=== PATIENT | male | born 1955 | race Caucasian/White ===

== ENCOUNTER 2020-09-17 13:45 | Outpatient (REF) | payer BC, SELFPAY ==
[2020-09-17 15:17] LABS: Prostate Specific Antigen < 0.05 ng/mL (<0.05-4.0)
[2020-09-17 15:21] LABS: Erythrocyte Sedimentation Rate 1 MM/HR (0-15)
[2020-09-17 15:23] LABS: Folate 15.5 ng/mL (> or = 4.0); Vitamin B12 743 pg/mL (200-900)
[2020-09-18 03:55] LABS: Syphilis Screen Nonreactive (Nonreactive)
[2020-09-19 17:31] LABS: Lyme Abs Screen <0.90 index
[2020-09-22 09:42] LABS: IgA 84 mg/dL (70-320); IgG 993 mg/dL (600-1540); IgM 67 mg/dL (50-300)
== END 2020-09-17 13:46 | disposition home or self-care (01) ==
LOC: HO.LAB 13:45
PROVIDERS: PCP Internal Medicine; Visit Provider Psychiatry & Neurology Neurology
DX: Z01.84 Encounter for antibody response examination (principal); Z12.5 Encounter for screening for malignant neoplasm of prostate; Z11.3 Encounter for screening for infections with a predominantly sexual mode of transmission; G62.9 Polyneuropathy, unspecified
CPT/HCPCS: 36415; 82607; 82746; 82784; 84153; 85652; 86334; 86617; 86618; 86780

== ENCOUNTER 2020-10-14 12:40 | Outpatient (REF) | payer BC, SELFPAY ==
[2020-10-14 13:52] LABS: Blood Urea Nitrogen 15 mg/dL (9-16); Estimated Glomerular Filt Rate > 60
[2020-10-14 14:09] LABS: Syphilis Screen Nonreactive (Nonreactive)
[2020-10-14 14:15] LABS: Vitamin B12 599 pg/mL (200-900)
[2020-10-15 09:25] LABS: Lyme Abs Screen <0.90 index
== END 2020-10-14 12:41 | disposition home or self-care (01) ==
LOC: HO.LAB 12:40
PROVIDERS: PCP Internal Medicine; Visit Provider Psychiatry & Neurology Neurology
DX: G93.40 Encephalopathy, unspecified (principal)
CPT/HCPCS: 36415; 82565; 82607; 84520; 86617; 86618; 86780

== ENCOUNTER 2020-11-03 14:50 | Outpatient (REF) | payer BC, SELFPAY ==
--- NOTE | ~2020-11-03 | MR_ITS ---
EXAMINATION: MRI OF THE BRAIN WITH AND WITHOUT IV CONTRAST INDICATION: Encephalopathy. COMPARISON: None available. TECHNIQUE: Multiplanar multisequence MR imaging of the brain was obtained without and following the administration of 9 mL of Gadavist without complication. FINDINGS: There is no pathologic intracranial enhancement. There is global cerebral volume loss and there is mild chronic microangiopathy. There is no hydrocephalus, extra-axial surface collection, or herniation. The major flow voids at the skull base are preserved. There is no acute infarct on diffusion-weighted imaging. There is no intracranial hemorrhage on the gradient recalled echo acquisition. The midline structures are normal. The cerebellar tonsils are normally positioned. The cerebellum and brainstem are normal. The craniocervical junction is normal. Osseous marrow signal intensity is homogenous. The visualized soft tissues are unremarkable. There is a retention cyst within the right maxillary sinus. The remaining paranasal sinuses and the mastoid air cells are clear. MR/MR head/brain wo/w con IMPRESSION: No acute intracranial findings. No pathologic enhancement. There is global cerebral volume loss and there is mild chronic microangiopathy.
== END 2020-11-03 14:51 | disposition home or self-care (01) ==
LOC: HO.MRI 14:50
PROVIDERS: PCP Internal Medicine; Visit Provider Psychiatry & Neurology Neurology
DX: G93.40 Encephalopathy, unspecified (principal)
CPT/HCPCS: 70553; A9585

== ENCOUNTER 2024-04-01 12:57 | Outpatient (AMB) | payer OTHER, SELFPAY ==
--- NOTE | 2024-04-01 13:14 | MHC.PC.OV ---
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 Intake Note: New patient visit Road Advisor Required: No Accompanied by: Spouse Allergies No Known Allergies Allergy (Verified 04/01/24 13:17) Tobacco use date assessed: 04/01/24 Fall risk assessment: No Falls in past year Last assessed Fall Risk: 04/01/24 Dental Screening Dental Screen Date: 04/01/24 Did you have a dental visit in the last 12 months?: Yes Did you have a dental problem in the last 6 months where you did not have access to dental care?: No Was dental information given to patient?: Patient has dentist HPI HPI Comments History of Present Illness Details 68 year old female with a past medical history of memory loss presenting to [facility]. Memory loss: On donepezil, memantine. Follows with Dr Kaet at [facility]. Diagnosed with alzheimer dementia. ROS CONSTITUTIONAL: Denies weight loss, fever and chills. HEENT: Denies changes in vision and hearing. RESPIRATORY: Denies SOB and cough. CV: Denies palpitations and CP GI: Denies abdominal pain, nausea, vomiting and diarrhea. : Denies dysuria and urinary frequency. MSK: Denies new myalgia and joint pain. SKIN: Denies rash and pruritus. NEUROLOGICAL: Denies headache PSYCHIATRIC: Denies recent changes in mood. PHYSICAL EXAM: GENERAL: Alert and oriented x 3. NAD EYES: EOMI. Anicteric. HENT: Moist mucous membranes. No scleral icterus. No cervical lymphadenopathy. LUNGS: Clear to auscultation bilaterally. CARDIOVASCULAR: Regular rate and rhythm. No murmur. No JVD. ABDOMEN: Soft, non-tender +bs EXTREMITIES: No edema. Non-tender. SKIN: No rashes or lesions. Warm. NEUROLOGIC: No focal neurological deficits. CN II-XII grossly intact PSYCHIATRIC: Cooperative. Appropriate mood and affect [facility] Surgical History History of appendectomy Hx of prostatectomy Family History Other Substance abuse Social History Housing: House Alcohol intake: current Patient Tobacco Use Status: Never used Tobacco e-Cigarette/Vaping Use: Never Used Second Hand Smoke Exposure: No service: No Current occupational status: retired Cognitive needs: Yes (has Alzheimer's ) Hearing needs: No Vision needs: Yes (reading glasses) Questionnaire PHQ-9 Over the last 2 weeks, how often have you been bothered by any of the following problems? 1. Little interest or pleasure in doing things: several days 2. Feeling down, depressed, or hopeless: several days 3. Trouble falling or staying asleep, or sleeping too much: not at all 4. Feeling tired or having little energy: not at all 5. Poor appetite or overeating: not at all 6. Feeling bad about yourself - or that you are a failure or have let yourself or your family down: not at all 7. Trouble concentrating on things, such as reading the newspaper or watching television: not at all 8. Moving or speaking so slowly that other people could have noticed. Or the opposite - being so fidgety or restless that you have been moving around a lot more than usual: not at all 9. Thoughts that you would be better off or of hurting yourself in some way: not at all Total score: 2 Depression Screening Interpretation: Negative Depression Screening Done: Yes 84486 - PHQ-9 Billing: Yes Source: Developed by Drs. Matthew Carter, Gaby Hirsch, Mars Schafer and colleagues, with an educational cheng from [employer] Thrive Questionnaire Date Thrive assessed: 03/29/24 I am a: Parent/Caregiver What is your living situation today?: I have a steady place to live Within the past 12 months, did the food you bought not last and you didn't have the money to get more?: Never true Within the past 12 months, did you worry whether your food would run out before you got money to buy more?: Never true Do you have trouble paying for medicines?: No Do you have trouble getting transportation to medical appointments?: No Do you have trouble paying your heating and electricity bill?: No Do you have trouble taking care of your child, family member or friend?: No Do you have trouble with day-to-day activities such as bathing, preparing meals, shopping, managing finances, etc.?: Yes Are you currently unemployed and looking for a job?: No Are you interested in more education?: No Please select the resources that you would like help with: None Currently or been in a relationship where the following occur: No concerns reported THRIVE Score: 0 AUDIT C Alcohol Use Questionnaire (AUDIT-C) 1. How often do you have a drink containing alcohol?: 2-4 times a month 2. How many drinks containing alcohol do you have on a typical day when you are drinking?: 1 or 2 3. How often do you have six or more drinks on one occasion?: Never Total Score: 2 LUIGI-7 AMB Questionnaire LUIGI-7 Feeling nervous, anxious, or on edge: 0 = Not at all Not being able to stop or control worryin = Not at all Worrying too much about different things: 0 = Not at all Trouble relaxin = Not at all Being so restless that it is hard to sit still: 0 = Not at all Becoming easily annoyed or irritable: 0 = Not at all Feeling afraid as if something awful might happen: 0 = Not at all Total LUIGI-7 score (0-4 normal; 5-9 mild; 10-14 moderate; 15-21 severe): 0 Source: Developed by Drs. Matthew Carter, Gaby Hirsch, Mars Schafer and colleagues, with an educational cheng from [employer] Physical exam (Primary Care) Vital Signs: Last Vital Signs Pulse 62 04/01/24 13:23 Resp 14 04/01/24 13:23 BP 118/78 04/01/24 13:23 Pulse Ox 97 04/01/24 13:23 Oxygen Delivery Method Room Air 04/01/24 13:23 BMI result Body Mass Index 28.3 Tobacco/Smoking Status: Tobacco use Status Tobacco use date assessed 04/01/24 04/01/24 13:26 Patient Tobacco Use Status Never used Tobacco 04/01/24 13:26 e-Cigarette/Vaping Use Never Used 04/01/24 13:26 PHQ-9: PHQ-9 Score PHQ-9: Total score 2 04/01/24 13:16 Depression Screening Interpretation: Negative Thrive Assessment: Date of Thrive Assessment Date Thrive assessed 03/29/24 04/01/24 13:16 Currently or been in a relationship where the following occur: No concerns reported Coding Level of Care Code Est Pt Level 4 (89848) Diagnoses Encounter to establish care Z76.89 Alzheimer's dementia, unspecified dementia severity, unspecified timing of dementia onset, unspecified whether behavioral, psychotic, or mood disturbance or anxiety G30.9; F02.80 Alzheimer's disease onset: unspecified onset Dementia severity: unspecified severity Dementia behavioral or psychological symptom: unspecified whether behavioral, psychotic, or mood disturbance or anxiety Additional Codes PHQ-9 - 50357 - PHQ-9 Billing: Yes ([id number]) Assessment & Plan Assessment & Plan (1) Encounter to establish care: Code(s): Z76.89 - Persons encountering health services in other specified circumstances Category: Medical Plan: 68 year old to establish care. Past medical, surgical, social and family history reviewed. (2) Alzheimer dementia: Code(s): G30.9 - Alzheimer's disease, unspecified; F02.80 - Dementia in other diseases classified elsewhere, unspecified severity, without behavioral disturbance, psychotic disturbance, mood disturbance, and anxiety Category: Medical Qualifiers: Alzheimer's disease onset: unspecified onset Dementia severity: unspecified severity Dementia behavioral or psychological symptom: unspecified whether behavioral, psychotic, or mood disturbance or anxiety Qualified Code(s): G30.9 - Alzheimer's disease, unspecified; F02.80 - Dementia in other diseases classified elsewhere, unspecified severity, without behavioral disturbance, psychotic disturbance, mood disturbance, and anxiety Plan: continue neurology follow up. Continue current medications. Orders: Orders TSH reflex Free T4 Today F02.80 - Dementia in other diseases classified elsewhere, unspecified severity, without behavioral disturbance, psychotic disturbance, mood disturbance, and anxiety, G30.9 - Alzheimer's disease, unspecified, Z13.0 - Encounter for screening for diseases of the blood and blood-forming organs and certain disorders involving the immune mechanism, Z13.220 - Encounter for screening for lipoid disorders, Z13.228 - Encounter for screening for other metabolic disorders Complete Blood Count Auto Diff Today F02.80 - Dementia in other diseases classified elsewhere, unspecified severity, without behavioral disturbance, psychotic disturbance, mood disturbance, and anxiety, G30.9 - Alzheimer's disease, unspecified, Z13.0 - Encounter for screening for diseases of the blood and blood-forming organs and certain disorders involving the immune mechanism, Z13.220 - Encounter for screening for lipoid disorders, Z13.228 - Encounter for screening for other metabolic disorders Comprehensive Met. Panel Today F02.80 - Dementia in other diseases classified elsewhere, unspecified severity, without behavioral disturbance, psychotic disturbance, mood disturbance, and anxiety, G30.9 - Alzheimer's disease, unspecified, Z13.0 - Encounter for screening for diseases of the blood and blood-forming organs and certain disorders involving the immune mechanism, Z13.220 - Encounter for screening for lipoid disorders, Z13.228 - Encounter for screening for other metabolic disorders Lipid Panel Today F02.80 - Dementia in other diseases classified elsewhere, unspecified severity, without behavioral disturbance, psychotic disturbance, mood disturbance, and anxiety, G30.9 - Alzheimer's disease, unspecified, Z13.0 - Encounter for screening for diseases of the blood and blood-forming organs and certain disorders involving the immune mechanism, Z13.220 - Encounter for screening for lipoid disorders, Z13.228 - Encounter for screening for other metabolic disorders Vitamin B12 and Folate Today F02.80 - Dementia in other diseases classified elsewhere, unspecified severity, without behavioral disturbance, psychotic disturbance, mood disturbance, and anxiety, G30.9 - Alzheimer's disease, unspecified, Z13.0 - Encounter for screening for diseases of the blood and blood-forming organs and certain disorders involving the immune mechanism, Z13.220 - Encounter for screening for lipoid disorders, Z13.228 - Encounter for screening for other metabolic disorders
[2024-04-01 13:23] VITALS: BP 118/78; PULSE 62; RESP 14; O2SAT 97; BMI 28.3
== END 2024-04-01 13:52 | disposition home or self-care (01) ==
PROVIDERS: PCP Internal Medicine; Visit Provider Internal Medicine
DX: Z76.89 Persons encountering health services in other specified circumstances (principal); G30.9 Alzheimer's disease, unspecified; F02.80 Dementia in other diseases classified elsewhere, unspecified severity, without behavioral disturbance, psychotic disturbance, mood disturbance, and anxiety

== ENCOUNTER → 2024-04-01 12:57 | Outpatient (BNVA) | payer OTHER, SELFPAY | PROVIDERS: PCP Internal Medicine; Visit Provider Internal Medicine | DX: G30.9 Alzheimer's disease, unspecified (principal); F02.80 Dementia in other diseases classified elsewhere, unspecified severity, without behavioral disturbance, psychotic disturbance, mood disturbance, and anxiety; Z76.89 Persons encountering health services in other specified circumstances; Z13.0 Encounter for screening for diseases of the blood and blood-forming organs and certain disorders involving the immune mechanism; Z13.220 Encounter for screening for lipoid disorders; Z13.228 Encounter for screening for other metabolic disorders | CPT/HCPCS: 96127 ==

== ENCOUNTER 2024-04-01 13:58 | Outpatient (REF) | payer OTHER, SELFPAY ==
--- OUTSIDE RECORDS SUMMARY | 2024-04-01 15:08 | XMS_ITS | Clinical Summary ---
Author Organization [facility] Address [address] [place] [address] Care Team Providers Care Featherer Name Role Phone Unavailable Primary Care Provider Unavailabl e Social History Tobacco Use Types Packs/Day Years Used Date Smoking Tobacco: Never Assessed Sex and Gender Information Value Date Recorded Sex Assigned at Not on file Gender Identity Not on file Sexual Orientation Not on file Plan of Treatment Health Maintenance Due Date Last Done Comments Hepatitis C Virus Screening 1955 DTaP/Tdap/Td Vaccines (1 - Tdap) 1973 Pneumococcal Vaccines 50+ (1 of 1 - PCV) 2004 Zoster (Shingles) Vaccine (1 of 2) 2004 COVID-19 Vaccine (2023-2 5 season) 2023 RSV Vaccine 60 years and old er and Patients (1 - 1-dose 75+ series) 2029 Hepatitis B Vaccines Aged Out No long er eligible based on patient's age to complete this topic
--- OUTSIDE RECORDS SUMMARY | 2024-04-01 15:08 | XMS_ITS | Clinical Summary ---
Author Organization [facility] Address [address] [place] [address] Phone Care Team Providers Care Pain Management Nurse Name Role Phone Raine Nguyen MD Primary Care Provider [phone] Allergies No known active allergies Medications memantine (NAMENDA) 10 mg tablet Take 1 tablet (10 mg total) by mouth 2 (two) times a day. 4 Active testosterone 20.25 mg/1.25 gram (1.62 %) gel in metered-dose pump Place 2 pump actuation onto the skin daily. 8 Active donepeziL (ARICEPT) 5 mg tabletIndicatio ns:Alzheimer disease ([facility]) Take 1 tablet (5 mg total) by mouth at bedtime. 90 tablet 2 5 02/21/19 26 Active Active Problems Problem Noted Date Diagnosed Date Alzheimer disease 12/30/2022 Encounters Date Type Department Care Team Description 02/22/2024 10:40 AM EST Office Visit Neurostroke - [place] [address] [place] [address] Abram Lucas MD Alzheimer disease ([facility]) (Primary Dx) from Last 3 Months Social History Tobacco Use Types Packs/Day Years Used Date Smoking Tobacco: Never Assessed Sex and Gender Information Value Date Recorded Sex Assigned at Not on file Legal Sex Male 11:05 PM EST Gender Identity Not on file Sexual Orientation Not on file Obstetrics History Last Filed Vital Signs Vital Sign Reading Time Taken Comments Blood Pressure 135/88 02/22/2024 10:41 AM EST Pulse 66 02/22/2024 10:41 AM EST Temperature - - Respiratory Rate - - Oxygen Saturation 98% 02/22/2024 10:41 AM EST Inhaled Oxygen Concentration - - Weight 82.1 kg (181 lb) 04/20/2023 1:52 PM EST Height 177.8 cm (5' 10 ) 04/20/2023 1:52 PM EST Body Mass Index 25.97 04/20/2023 1:52 PM EST Plan of Treatment Upcoming Encounters Date Type Department Care Team (Late st Contact Info) Description 04/16/2024 1:00 PM EST Office Visit Neurology - [place] [place] [id number] Abram Luacs MD [address] [place], [place] [id number] Health Maintenance Due Date Last Done Comments Abdominal Aortic Aneurysm (AAA) Screen 01/29/2022 Depression Screening 01/29/2022 Falls Risk Assessment 01/29/2022 Medicare Annual Wellness Visit 01/29/2022 Social Influencers of Health Screening 01/29/2022 Hypertension/CHF/CAD Annual BMP Blood Test 02/01/2022 Zoster Vaccines (2 of 2) 02/18/2023 12/24/2022, 11/21 COVID-19 Vaccine ( season) 2023 11/27/2020, 05/16/2020, 04/25/2020 Influenza Vaccine (#1) 2023 , 11/24/2019, 11/29/2018, Additional history exists Colorectal Cancer Screening: Colonoscopy 02/07/2026 02/08/2016, 02/08/2016 Cholesterol Screening (Lipid Panel) 03/01/2028 03/01/2023 RSV Immunization Patients 60+ Years Old (1 - 1-dose 75+ series) 2029 DTaP,Tdap,and Td Vaccines (4 - Td or Tdap) 11/03/2031 11/02/2021, 04/13/2011, 03/06/2003 Hepatitis C Screening Addressed 12/23/2016 Overri dden with the intention of not completing the topic Pneumococcal Vaccine: 50+ Years Completed 01/30/2023, 11/02/2021 HIB Vaccines Aged Out No longer eligi ble based on patient's age to complete this topic HPV Vaccines Aged Out No longer eligi ble based on patient's age to complete this topic Hepatitis A Vaccines Aged Out No long er eligible based on patient's age to complete this topic Hepatitis B Vaccines Aged Out No long er eligible based on patient's age to complete this topic IPV Vaccines Aged Out No longer eligi ble based on patient's age to complete this topic MMR Vaccines Aged Out No longer eligi ble based on patient's age to complete this topic Meningococcal ACWY Vaccine Aged Out N o longer eligible based on patient's age to complete this topic Meningococcal B Vacine Aged Out No lo nger eligible based on patient's age to complete this topic RSV Immunization Patients Under 20 months Aged Out No longer eligible based on patient's age to complete this topic Varicella Vaccines Aged Out No longer eligible based on patient's age to complete this topic Insurance [employer] MEDICARE Care Teams Pain Management Nurse Relationship Specialty Start Date End Date Raine Nguyen MD PCP - General Internal Medicine 02/22/24
--- OUTSIDE RECORDS SUMMARY | 2024-04-01 15:08 | XMS_ITS | Clinical Summary ---
Author Organization [facility] Address [address] [place] [address] Care Team Providers Care Classer Name Role Phone Unavailable Primary Care Provider Unavailabl e Allergies No known active allergies Medications Medication Sig Dispensed Refills Start Date End Date Status testosterone (ANDROGEL) gel pump 1.62% (20.25 mg testosterone/1.25 g gel) Place 2 pump actuation onto the skin daily. 60 pump actuation 5 06/19/2017 Active Additional Information Patient not taking.Reason: Other, Reported on 05/16/2023 memantine (NAMENDA) 10 MG tabletIndications :Alzheimer disease (HCC) TAKE 1 TABLET BY MOUTH TWICE A DAY 180 tablet 2 11/29/2023 Active Active Problems Problem Noted Date Diagnosed Date Alzheimer disease 05/16/2023 Social History Tobacco Use Types Packs/Day Years Used Date Smoking Tobacco: Never Assessed Sex and Gender Information Value Date Recorded Sex Assigned at Not on file Gender Identity Not on file Sexual Orientation Not on file Job Start Date Occupation Industry Not on file Not on file Not on file Last Filed Vital Signs Vital Sign Reading Time Taken Comments Blood Pressure 145/88 11/20/2023 10:28 AM EDT Pulse 86 11/20/2023 10:28 AM EDT Temperature - - Respiratory Rate - - Oxygen Saturation 98% 11/20/2023 10:28 AM EDT Inhaled Oxygen Concentration - - Weight - - Height - - Body Mass Index - - Plan of Treatment Health Maintenance Due Date Last Done Comments Hepatitis C Screening 1955 Depression Screening 1966 Preventative Health Evaluation 1972 Colon Cancer Screening (Colonoscopy) 1999 Fall Risk Assessment 2019 Shingrix-Zoster Vaccine (2 of 2) 02/18/2023 12/24/2022 COVID-19 Vaccine ( season) 2023 11/27/2020, 05/16/2020, 04/25/2020 Influenza Vaccine (#1) 2023 , 11/24/2019, 11/29/2018, Additional history exists RSV Adult > 60+ Yrs or (1 - 1-dose 75+ series) 2029 DTap / Tdap / Td (3 - Td or Tdap) 11/03/2031 11/02/2021, 04/13/2011 Pneumococcal Vaccine Completed 01/30/2023, 11/03/19 Hepatitis B Vaccines Aged Out No long er eligible based on patient's age to complete this topic RSV Ped < 20 months Aged Out No longe r eligible based on patient's age to complete this topic
[2024-04-01 17:53] LABS: MANUAL DIFF FLAG NO
[2024-04-01 18:04] LABS: Basophils Absolute Auto 0.1 X10*3/uL (0.0-0.2); Basophils Percent Auto 0.7 % (0-2); Eosinophils Percent Auto 0.3 % (0-4); Hematocrit 47.5 % (42.0-52.0); Hemoglobin 16.1 g/dl (14.0-18.0); Imm Gran Abs Auto 0.03 X10*3/uL (0.00-0.03); Imm Gran Pct Auto 0.3 % (0.0-0.4); Lymphocytes Absolute Auto 2.3 X10*3/uL (1.2-4.9); Lymphocytes Percent Auto 26.2 % (20-40); Mean Corpuscular HGB Conc 33.9 g/dl (31.0-36.0); Mean Corpuscular Hemoglobin 29.9 pg (27.0-33.0); Mean Corpuscular Volume 88.1 fL (80.0-98.0); Mean Platelet Volume 10.4 fL (9.4-12.4); Monocytes Absolute Auto 0.6 X10*3/uL (0.1-1.2); Monocytes Percent Auto 6.9 % (2-11); Neutrophils Absolute Auto 5.7 x10*3/uL (2.0-8.3); Neutrophils Percent Auto 65.6 % (45-73); Platelet Count 244 X10*3/uL (160-400); Red Blood Count 5.39 X10*6/uL (4.60-5.80); White Blood Count 8.6 X10*3/uL (4.8-10.8)
[2024-04-01 18:23] LABS: Alanine Aminotransferase 26 U/L (0-40); Albumin Level 4.5 g/dL (3.5-5.0); Alkaline Phosphatase 63 U/L (39-117); Anion Gap 10 (12-20); Aspartate Amino Transferase 24 U/L (5-37); Bilirubin Total 0.8 mg/dL (0.0-1.0); Blood Urea Nitrogen 16 mg/dL (9-16); Calcium 9.5 mg/dL (8.4-10.2); Carbon Dioxide 27 mmol/L (22-29); Chloride 107 mmol/L (96-108); Cholesterol 188 mg/dL (<200); Estimated Glomerular Filt Rate > 60; Glucose Random 85 mg/dL (60-115); HDL Cholesterol 43 mg/dL (>40); LDL Cholesterol Calculated 116 mg/dL (<100); Potassium 4.3 mmol/L (3.3-5.1); Sodium 140 mmol/L (135-145); Total Protein 7.6 g/dL (6.5-8.0); Triglycerides 149 mg/dL (<150)
[2024-04-01 18:39] LABS: TSH reflex Free T4 1.75 uIU/mL (0.32-4.0)
[2024-04-01 18:52] LABS: Folate 13.2 ng/mL (> or = 4.0); Vitamin B12 648 pg/mL (200-900)
== END 2024-04-01 13:59 | disposition home or self-care (01) ==
LOC: HO.WFDLDS 13:58
PROVIDERS: Visit Provider Internal Medicine
DX: Z13.0 Encounter for screening for diseases of the blood and blood-forming organs and certain disorders involving the immune mechanism (principal); Z13.220 Encounter for screening for lipoid disorders; Z13.228 Encounter for screening for other metabolic disorders; G30.9 Alzheimer's disease, unspecified; F02.80 Dementia in other diseases classified elsewhere, unspecified severity, without behavioral disturbance, psychotic disturbance, mood disturbance, and anxiety
CPT/HCPCS: 36415; 80053; 80061; 82607; 82746; 84443; 85025

== ENCOUNTER 2024-12-24 15:07 | Outpatient (AMB) | payer OTHER, SELFPAY ==
--- NOTE | 2024-12-24 15:10 | MHC.PC.OV ---
Vital Signs 12/24/24 15:14 Height 5 ft 10 in Weight 200 lb 8 oz BMI 28.8 BP 162/78 H Blood Pressure Location Rt brachial Position Sitting Respiration 14 Pulse 82 Pulse Source Pulse Oximeter Temp 97.3 F Temp Source Oral Pulse Oximetry (%) 99 Oxygen Delivery Method Room Air Intake Visit Reasons: PE - see comments Intake Note: CPE. Patient want to discuss about his mood has been off. Manager Of Learning Required: No Allergies No Known Allergies Allergy (Verified 12/24/24 15:10) Tobacco use date assessed: 12/24/24 Fall risk assessment: No Falls in past year Last assessed Fall Risk: 12/24/24 Dental Screening Dental Screen Date: 12/24/24 Did you have a dental visit in the last 12 months?: Yes Did you have a dental problem in the last 6 months where you did not have access to dental care?: No Was dental information given to patient?: Patient has dentist HPI HPI Comments History of Present Illness Details 68 year old female with a past medical history of memory loss presenting for CPE Memory loss: On donepezil, memantine. Follows with Dr Kate at [facility]. Diagnosed with alzheimer dementia. Seen in August. PCV 2022 Tdap 2021 Shingrix 2022 ++ Flu & COVID -received ROS CONSTITUTIONAL: Denies weight loss, fever and chills. HEENT: Denies changes in vision and hearing. RESPIRATORY: Denies SOB and cough. CV: Denies palpitations and CP GI: Denies abdominal pain, nausea, vomiting and diarrhea. : Denies dysuria and urinary frequency. MSK: Denies new myalgia and joint pain. SKIN: Denies rash and pruritus. NEUROLOGICAL: Denies headache PSYCHIATRIC: Denies recent changes in mood. PHYSICAL EXAM: GENERAL: Alert and oriented x 3. NAD EYES: EOMI. Anicteric. HENT: Moist mucous membranes. No scleral icterus. No cervical lymphadenopathy. LUNGS: Clear to auscultation bilaterally. CARDIOVASCULAR: Regular rate and rhythm. No murmur. No JVD. ABDOMEN: Soft, non-tender +bs EXTREMITIES: No edema. Non-tender. SKIN: No rashes or lesions. Warm. NEUROLOGIC: No focal neurological deficits. CN II-XII grossly intact PSYCHIATRIC: Cooperative. Appropriate mood and affect [facility] Surgical History (Updated 12/24/24 @ 16:05 by Raine Nguyen MD) History of appendectomy Hx of prostatectomy Family History Other Substance abuse Social History Housing: House Alcohol intake: current Patient Tobacco Use Status: Never used Tobacco e-Cigarette/Vaping Use: Never Used Second Hand Smoke Exposure: No service: No Current occupational status: retired Cognitive needs: Yes (has Alzheimer's ) Hearing needs: No Vision needs: Yes (reading glasses) Questionnaire PHQ-9 Over the last 2 weeks, how often have you been bothered by any of the following problems? 1. Little interest or pleasure in doing things: not at all 2. Feeling down, depressed, or hopeless: not at all 3. Trouble falling or staying asleep, or sleeping too much: not at all 4. Feeling tired or having little energy: not at all 5. Poor appetite or overeating: not at all 6. Feeling bad about yourself - or that you are a failure or have let yourself or your family down: not at all 7. Trouble concentrating on things, such as reading the newspaper or watching television: not at all 8. Moving or speaking so slowly that other people could have noticed. Or the opposite - being so fidgety or restless that you have been moving around a lot more than usual: not at all 9. Thoughts that you would be better off or of hurting yourself in some way: not at all Total score: 0 Depression Screening Interpretation: Negative Depression Screening Done: Yes 79487 - PHQ-9 Billing: Yes Source: Developed by Drs. Matthew Carter, Gaby Hirsch, Mars Schafer and colleagues, with an educational cheng from [employer]. Thrive Questionnaire Date Thrive assessed: 12/24/24 I am a: Parent/Caregiver What is your living situation today?: I have a steady place to live Within the past 12 months, did the food you bought not last and you didn't have the money to get more?: Never true Within the past 12 months, did you worry whether your food would run out before you got money to buy more?: Never true Do you have trouble paying for medicines?: No Do you have trouble getting transportation to medical appointments?: No Do you have trouble paying your heating and electricity bill?: No Do you have trouble taking care of your child, family member or friend?: No Do you have trouble with day-to-day activities such as bathing, preparing meals, shopping, managing finances, etc.?: Yes Are you currently unemployed and looking for a job?: No Are you interested in more education?: No Please select the resources that you would like help with: None Currently or been in a relationship where the following occur: No concerns reported THRIVE Score: 0 AUDIT C Alcohol Use Questionnaire (AUDIT-C) 1. How often do you have a drink containing alcohol?: 2-4 times a month 2. How many drinks containing alcohol do you have on a typical day when you are drinking?: 1 or 2 3. How often do you have six or more drinks on one occasion?: Never Total Score: 2 Score Reviewed/Action Taken: Yes LUIGI-7 AMB Questionnaire LUIGI-7 Date LUIGI - 7 assessed: 12/24/24 Feeling nervous, anxious, or on edge: 1 = Several days Not being able to stop or control worryin = Not at all Worrying too much about different things: 0 = Not at all Trouble relaxin = Not at all Being so restless that it is hard to sit still: 0 = Not at all Becoming easily annoyed or irritable: 0 = Not at all Feeling afraid as if something awful might happen: 0 = Not at all Total LUIGI-7 score (0-4 normal; 5-9 mild; 10-14 moderate; 15-21 severe): 1 Source: Developed by Drs. Matthew Carter, Gaby Hirsch, Mars Schafer and colleagues, with an educational cheng from [employer]. LUIGI-7 Assessment Billing LUIGI-7 Assessment Tool: LUIGI-7 Assessment 21651 Physical exam (Primary Care) Vital Signs: Last Vital Signs Temp 97.3 F 12/24/24 15:14 Pulse 82 12/24/24 15:14 Resp 14 12/24/24 15:14 BP 162/78 H 12/24/24 15:14 Pulse Ox 99 12/24/24 15:14 Oxygen Delivery Method Room Air 12/24/24 15:14 BMI result Body Mass Index 28.8 Tobacco/Smoking Status: Tobacco use Status Tobacco use date assessed 12/24/24 12/24/24 15:16 Patient Tobacco Use Status Never used Tobacco 12/24/24 15:16 e-Cigarette/Vaping Use Never Used 12/24/24 15:16 PHQ-9: PHQ-9 Score PHQ-9: Total score 0 12/24/24 15:59 Depression Screening Interpretation: Negative Thrive Assessment: Date of Thrive Assessment Date Thrive assessed 12/24/24 12/24/24 15:16 Currently or been in a relationship where the following occur: No concerns reported Coding Level of Care Code Est Pt Prev Care >65y(43532) Diagnoses Physical exam Z00.00 Additional Codes LUIGI-7 Assessment Billing - LUIGI-7 Assessment Tool: LUIGI-7 Assessment 44167 ([id number]) PHQ-9 - 29256 - PHQ-9 Billing: Yes ([id number]) Assessment & Plan Assessment & Plan (1) Physical exam: Code(s): Z00.00 - Encounter for general adult medical examination without abnormal findings Plan 69 year old male presenting for CPE Interval history reviewed Preventive measures for age discussed Alzheimer is stable-continue follow up [facility] ordered Orders: Orders Comprehensive Met. Panel 12/24/24 Z13.0 - Encounter for screening for diseases of the blood and blood-forming organs and certain disorders involving the immune mechanism, Z13.220 - Encounter for screening for lipoid disorders, Z13.228 - Encounter for screening for other metabolic disorders Lipid Panel 12/24/24 Z13.0 - Encounter for screening for diseases of the blood and blood-forming organs and certain disorders involving the immune mechanism, Z13.220 - Encounter for screening for lipoid disorders, Z13.228 - Encounter for screening for other metabolic disorders TSH reflex Free T4 12/24/24 Z13.0 - Encounter for screening for diseases of the blood and blood-forming organs and certain disorders involving the immune mechanism, Z13.220 - Encounter for screening for lipoid disorders, Z13.228 - Encounter for screening for other metabolic disorders Prostate Specific Antigen 12/24/24 Z13.0 - Encounter for screening for diseases of the blood and blood-forming organs and certain disorders involving the immune mechanism, Z13.220 - Encounter for screening for lipoid disorders, Z13.228 - Encounter for screening for other metabolic disorders Complete Blood Count Auto Diff 12/24/24 Z13.0 - Encounter for screening for diseases of the blood and blood-forming organs and certain disorders involving the immune mechanism, Z13.220 - Encounter for screening for lipoid disorders, Z13.228 - Encounter for screening for other metabolic disorders
[2024-12-24 15:14] VITALS: BP 162/78; PULSE 82; RESP 14; TEMP 36.3; O2SAT 99; BMI 28.8
--- OUTSIDE RECORDS SUMMARY | 2024-12-24 18:04 | XMS_ITS | Clinical Summary ---
Author Organization [facility] Address [address] [place] [address] Care Team Providers Care Oil Burner Mechanic Name Role Phone Unavailable Primary Care Provider Unavailabl e Social History Tobacco Use Types Packs/Day Years Used Date Smoking Tobacco: Never Assessed Sex and Gender Information Value Date Recorded Sex Assigned at Not on file Legal Sex Male 6:44 PM EST Gender Identity Not on file Sexual Orientation Not on file Plan of Treatment Health Maintenance Due Date Last Done Comments Advance Care Planning 1955 Hepatitis C Virus Screening 1955 DTaP/Tdap/Td Vaccines (1 - Tdap) 1973 Pneumococcal Vaccines 50+ (1 of 1 - PCV) 2004 Zoster (Shingles) Vaccine (1 of 2) 2004 COVID-19 Vaccine ( - 2023-2 5 season) 2024 RSV Vaccine 50 years and old er and Patients (1 - 1-dose 75+ series) 2029 Hepatitis B Vaccines Aged Out No long er eligible based on patient's age to complete this topic
--- OUTSIDE RECORDS SUMMARY | 2024-12-24 18:04 | XMS_ITS ---
Author Name [facility] Organization Unknown History of Medication Use Medication Directions Dispensed Refills Start Date End Date Stat us donepeziL (ARICEPT) 5 mg tablet Take 1 tablet (5 mg total) by mouth at bedtime. 02/22/2024 active memantine (NAMENDA) 10 mg tablet TAKE 1 TABLET BY MOUTH TWICE A DAY 11/29/2023 active memantine (NAMENDA) 10 MG tablet Take 1 tablet (10 mg total) by mouth 2 (two) times a day. 05/16/2023 active memantine (NAMENDA) 5 MG tablet Take 1 tablet (5 mg total) by mouth 2 (two) times a day. 04/25/2023 05/16/2023 aborted testosterone (ANDROGEL) gel pump 1.62% (20.25 mg testosterone/1.25 g gel) Place 2 pump actuation onto the skin daily. 06/19/2017 active testosterone 20.25 mg/1.25 gram (1.62 %) gel in metered-dose pump Place 2 pump actuation onto the skin daily. 06/19/2017 active Problems Problem Status Onset Date Problem Type Date of Resoluti on Source Alzheimer disease active 2023-05-16 ProblemAct CTTHNEMG Alzheimer disease ([facility] V24, [facility] V28) active 2022-12-30 ProblemAct CT_THSFRAN Encounters Encounter Type Encounter Reason Primary Diagnosis Location Date Ambulatory Memory Loss Memory Loss [facility] 09/19/2024 Ambulatory [facility] 04/16/2024 Ambulatory Alzheimer's disease, unspecified Alzheimer's disease, unspecified [facility] 02/22/2024 Care Team Organization Name Specialty Phone Email Start Date End Da te [facility] Primary Care 02/28/2024 [facility] Primary Care 02/22/2024 [facility] O'Toussaint Raine Primary Care 02/22/2024 [facility] Leticia Babcock Primary Care 02/01/2023 10/09/2023 [facility] Lory Tong DO Primary Care 06/27/202209/20 [facility] Nickie Barrios Primary Care 04/27/2022 024 [facility] Susi Og Primary Care 12/28/2021 10/09/19 24
--- OUTSIDE RECORDS SUMMARY | 2024-12-24 18:04 | XMS_ITS | Clinical Summary ---
Author Organization [facility] Address [address] [place] [address] Care Team Providers Care Electron Microscopist Name Role Phone Unavailable Primary Care Provider [...] 2) 02/18/2023 12/24/2022 COVID-19 Vaccine ( season) 2024 11/27/2020, 05/16/2020, 04/25/2020 Influenza Vaccine (#1) 2024 , 11/24/2019, 11/29/2018, Additional history exists RSV [...]
--- OUTSIDE RECORDS SUMMARY | 2024-12-24 18:04 | XMS_ITS | Clinical Summary ---
Author Organization [facility] Address [facility] [place]note 2] [place] [address] Phone Care Team Providers Care Blade Grinder Name Role Phone Raine Nguyen MD Primary Care Provider [phone] Allergies No known active allergies Medications memantine (NAMENDA) 10 mg tabletIndication s:Alzheimer's disease, unspecified (CODE) ([facility] [place], [facility] [place]) TAKE 1 TABLET BY MOUTH TWICE A DAY 180 tablet 2 5 Active donepeziL (ARICEPT) 5 mg tabletIndication s:Alzheimer disease ([facility] [place], [facility] V28) TAKE 1 TABLET BY MOUTH EVERYDAY AT BEDTIME 90 tablet 2 5 Active Active Problems Problem Noted Date Diagnosed Date Alzheimer disease ([facility] [place], [facility] V28) 11/2022 Social History Tobacco Use Types Packs/Day Years Used Date Smoking Tobacco: Never Assessed Sex and Gender Information Value Date Recorded Sex Assigned at Not on file Legal Sex Male 11:05 PM EST Gender Identity Not on file Sexual Orientation Not on file Obstetrics History Last Filed Vital Signs Vital Sign Reading Time Taken Comments Blood Pressure 147/92 09/19/2024 2:11 PM EDT Pulse 83 09/19/2024 2:11 PM EDT Temperature - - Respiratory Rate - - Oxygen Saturation 98% 09/19/2024 2:11 PM EDT Inhaled Oxygen Concentration - - Weight 82.1 kg (181 lb) 04/20/2023 1:52 PM EST Height 177.8 cm (5' 10 ) 04/20/2023 1:52 PM EST Body Mass Index 25.97 04/20/2023 1:52 PM EST Plan of Treatment Upcoming Encounters Date Type Department Care Team (Late st Contact Info) Description 04/21/2025 2:00 PM EST Office Visit [facility] [place] [address] [place] [address] Abram Lucas MD [address] [place] [address] Health Maintenance Due Date Last Done Comments Abdominal Aortic Aneurysm (AAA) Screen 01/29/2022 Falls Risk Assessment 01/29/2022 Medicare Annual Wellness Visit 01/29/2022 Social Influencers of Health Screening 01/29/2022 Hypertension/CHF/CAD Annual BMP Blood Test 02/01/2022 Zoster Vaccines (3 of 3) 02/18/2023 12/24/2022, 11/21 Depression Screening 02/21/2024 COVID-19 Vaccine ( season) 2024 11/27/2020, 05/16/2020, 04/25/2020 Colorectal Cancer Screening: Colonoscopy 02/07/2026 02/08/2016, 02/08/2016 Cholesterol Screening (Lipid Panel) 03/01/2028 03/01/2023 RSV Immunization Adult Patients (1 - 1-dose 75+ series) 2029 DTaP,Tdap,and Td Vaccines (4 - Td or Tdap) 11/03/2031 11/02/2021, 04/13/2011, 03/06/2003 Hepatitis C Screening Addressed 12/23/2016 Overri dden with the intention of not completing the topic Pneumococcal Vaccine: 50+ Years Completed 01/30/2023, 11/02/2021 Influenza Vaccine Completed 11/13/2024, , 11/24/2019, Additional history exists HIB Vaccines Aged Out No longer eligi [...] age to complete this topic Meningococcal B Vaccine Aged Out No l onger eligible based on patient's age to complete this topic RSV Immunization Patients Under 20 months Aged Out No longer eligible based on patient's age to complete this topic Varicella Vaccines Aged Out No longer eligible based on patient's age to complete this topic Insurance [employer] MEDICARE Care Teams Blade Grinder Relationship Specialty Start Date End Date Raine Nguyen MD PCP - General Internal Medicine 02/22/24
== END 2024-12-24 16:17 | disposition home or self-care (01) ==
LOC: HO.HMCFM 15:08
PROVIDERS: PCP Internal Medicine; Visit Provider Internal Medicine
DX: Z00.00 Encounter for general adult medical examination without abnormal findings (principal)

== ENCOUNTER → 2024-12-24 15:07 | Outpatient (BNVA) | payer OTHER, SELFPAY | PROVIDERS: PCP Internal Medicine; Visit Provider Internal Medicine | DX: Z00.00 Encounter for general adult medical examination without abnormal findings (principal) | CPT/HCPCS: 96127 ==

== ENCOUNTER 2025-01-01 12:38 | Outpatient (REF) | payer OTHER, SELFPAY ==
[2025-01-01 14:08] LABS: MANUAL DIFF FLAG NO
[2025-01-01 14:18] LABS: Hematocrit 49.1 % (42.0-52.0); Hemoglobin 16.4 g/dl (14.0-18.0); Imm Gran Abs Auto 0.03 X10*3/uL (0.00-0.03); Imm Gran Pct Auto 0.4 % (0.0-0.4); Lymphocytes Absolute Auto 2.1 X10*3/uL (1.2-4.9); Mean Corpuscular HGB Conc 33.4 g/dl (31.0-36.0); Mean Corpuscular Hemoglobin 29.5 pg (27.0-33.0); Mean Corpuscular Volume 88.3 fL (80.0-98.0); NRBC Abs Auto 0.000 X10*3/uL (0.0-0.012); NRBC Pct Auto 0.0 /100WBC (0.0-0.2); Platelet Count 247 X10*3/uL (160-400); Red Blood Count 5.56 X10*6/uL (4.60-5.80); White Blood Count 8.1 X10*3/uL (4.8-10.8)
[2025-01-01 15:03] LABS: Alanine Aminotransferase 26 U/L (0-40); Albumin Level 4.7 g/dL (3.5-5.0); Alkaline Phosphatase 65 U/L (39-117); Anion Gap 12 (12-20); Aspartate Amino Transferase 22 U/L (5-37); Blood Urea Nitrogen 13 mg/dL (9-16); Calcium 9.8 mg/dL (8.4-10.2); Carbon Dioxide 28 mmol/L (22-29); Chloride 107 mmol/L (96-108); Cholesterol 191 mg/dL (<200); Estimated Glomerular Filt Rate > 60; HDL Cholesterol 42 mg/dL (>40); Potassium 4.8 mmol/L (3.3-5.1); Sodium 142 mmol/L (135-145); Total Protein 7.3 g/dL (6.5-8.0); Triglycerides 168 mg/dL (<150)
[2025-01-01 15:09] LABS: Prostate Specific Antigen < 0.10 ng/mL (<0.05-4.0)
--- OUTSIDE RECORDS SUMMARY | 2025-01-01 15:18 | XMS_ITS | Clinical Summary ---
Author Organization [facility] Address [facility] [place] [address] Phone Care Team Providers Care Upper Marker Name Role Phone Raine Nguyen MD Primary Care Provider [phone] Allergies No known active allergies Medications memantine (NAMENDA) 10 mg tabletIndication s:Alzheimer's disease, unspecified (CODE) ([facility] V24, [facility] V28) TAKE 1 TABLET BY MOUTH TWICE A DAY 180 tablet 2 5 Active donepeziL (ARICEPT) 5 mg tabletIndication s:Alzheimer disease ([facility] V24, [facility] V28) TAKE 1 TABLET BY MOUTH EVERYDAY AT BEDTIME 90 tablet 2 5 Active Active Problems Problem Noted Date Diagnosed Date Alzheimer disease ([facility] V24, [facility] V28) 11/2022 Social History Tobacco Use Types [...] 2:00 PM EST Office Visit [facility] [place] [address] [place] [address] Abram Lucas MD [address] [place] [address] Health Maintenance Due Date Last Done Comments [...] 1-dose 75+ series) 2029 DTaP,Tdap,and Td Vaccines (5 - Td or Tdap) 12/26/2034 12/26/2024, 11/02/2021, 04/13/2011, Additional history exists Hepatitis C Screening Addressed 12/23/2016 Overri dden [...] topic Insurance [employer] MEDICARE Care Teams Upper Marker Relationship Specialty Start Date End Date Raine Nguyen MD PCP - General Internal Medicine 02/22/24
--- OUTSIDE RECORDS SUMMARY | 2025-01-01 15:18 | XMS_ITS | Clinical Summary ---
Author Organization [facility] Address [address] [place] [address] Care Team Providers Care Barber Shop Operator Name Role Phone Unavailable Primary Care Provider [...]
--- OUTSIDE RECORDS SUMMARY | 2025-01-01 15:18 | XMS_ITS | Clinical Summary ---
Author Organization [facility] Address [address] [place] [address] Care Team Providers Care Blending Tank Tender Name Role Phone Unavailable Primary Care Provider [...]
== END 2025-01-01 12:39 | disposition home or self-care (01) ==
LOC: HO.WFDLDS 12:38
PROVIDERS: Visit Provider Internal Medicine
DX: Z13.0 Encounter for screening for diseases of the blood and blood-forming organs and certain disorders involving the immune mechanism (principal); Z13.228 Encounter for screening for other metabolic disorders; Z13.220 Encounter for screening for lipoid disorders; Z12.5 Encounter for screening for malignant neoplasm of prostate; Z13.6 Encounter for screening for cardiovascular disorders; Z13.29 Encounter for screening for other suspected endocrine disorder
CPT/HCPCS: 36415; 80053; 80061; 84153; 84443; 85025